=== PATIENT | male | born 1965 | race Caucasian/White ===

== ENCOUNTER 2016-11-27 10:00 | Emergency (ER) | payer BC ==
[~2016-11-27] VITALS: Ht 182.9 cm; Wt 87.5 kg
[2016-11-27] MEDS ORDERED: ATOR40TA PO (10:10)
[2016-11-27] MEDS ORDERED: LISI25TA PO (10:10)
[2016-11-27] MEDS ORDERED: ASPI81TA85 PO (10:10)
[2016-11-27 11:28] LABS: BASO % 0.2 % (0.0-1.0); EOS # 0.1 K/mm3 (0.0-0.50); EOS % 2.1 % (0.0-3.0); LARGE UNSTAINED CELL # 0.1 K/mm3 (0.0-0.4); LARGE UNSTAINED CELL % 1.6 % (0.0-4.0); LYMPH # 1.4 K/mm3 (1.5-4.5); LYMPH % 35.1 % (24.0-44.0); MEAN CORPUSCULAR HEMOGLOBIN 32.4 pg (27.0-33.0); MEAN CORPUSCULAR HGB CONC 34.6 g/dl (32.0-36.5); MEAN CORPUSCULAR VOLUME 93.6 fl (80.0-96.0); MONO # 0.2 K/mm3 (0.0-0.8); MONO % 5.1 % (0.0-5.0); NEUTROPHILS # 2.2 K/mm3 (1.8-7.7); NEUTROPHILS % 55.9 % (36.0-66.0); PLATELET COUNT, AUTOMATED 206 k/mm3 (150-450); RED CELL DISTRIBUTION WIDTH 12.5 % (11.5-14.5); WHITE BLOOD COUNT 3.9 K/mm3 (4.0-10.0)
[2016-11-27] MEDS ORDERED: ASPIRIN 81 MG CHEW TABLET PO ONE (11:30)
[2016-11-27 11:43] LABS: ANION GAP 8 MEQ/L (8-16); BLOOD UREA NITROGEN 16 MG/DL (7-18); CALCIUM LEVEL 9.5 MG/DL (8.5-10.1); CARBON DIOXIDE LEVEL 29 MEQ/L (21-32); CHLORIDE LEVEL 104 MEQ/L (98-107); GLOMERULAR FILTRATION RATE > 60.0 (>56); GLUCOSE, FASTING 105 MG/DL (70-105); POTASSIUM SERUM 4.4 MEQ/L (3.5-5.1); SODIUM LEVEL 141 MEQ/L (136-145)
--- NOTE | 2016-11-27 12:01 | REP ---
CHEST, TWO VIEWS: Two views of the chest are performed. There is no acute infiltrate. The heart is normal in size. The mediastinal silhouette is unremarkable. Multiple sternal wires and mediastinal clips are present. There are degenerative changes of the spine. IMPRESSION: No acute pulmonary disease. Signed by Wilfrido Fletcher MD 11/27/2016 01:50 P
[2016-11-27 16:17] VITALS: BP 119/80
--- NOTE | 2016-11-29 09:36 | ECGEPIP ---
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
--- NOTE | 2016-11-29 09:36 | ECGEPIP ---
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
== END 2016-11-27 16:53 | disposition home or self-care (01) ==
LOC: M ED 10:38
DX: I10 Essential (primary) hypertension (principal); I25.10 Atherosclerotic heart disease of native coronary artery without angina pectoris; E78.5 Hyperlipidemia, unspecified; Z95.1 Presence of aortocoronary bypass graft